=== PATIENT | female | born 1995 | race American Indian/Alaskan Native ===

== ENCOUNTER 2019-04-12 11:26 | Emergency (ER) | payer SELFPAY ==
[2019-04-12 11:49] VITALS: BP 116/67
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
--- NOTE | 2019-04-12 13:27 | XRay Report ---
CHEST PA AND LATERAL VIEWS INDICATION: chest pain. COMPARISON: None. FINDINGS: Support devices: None. Heart: Within normal limits. Lungs/Pleura: No acute pulmonary or pleural findings. IMPRESSION: 1. No significant abnormality. Signer Name: Curt Marie MD Signed: 04/12/2019 1:23 PM Workstation Name: [id number]
== END 2019-04-12 19:30 | disposition left against medical advice (07) ==
LOC: ED 11:26
DX: S20.219A Contusion of unspecified front wall of thorax, initial encounter (principal); Z79.899 Other long term (current) drug therapy; Z91.013 Allergy to seafood; V49.49XA Driver injured in collision with other motor vehicles in traffic accident, initial encounter; Y93.89 Activity, other specified; Y92.410 Unspecified street and highway as the place of occurrence of the external cause; Y99.8 Other external cause status
CPT/HCPCS: 71046